=== PATIENT | female | born 1980 | race Hispanic/Latino ===

== ENCOUNTER 2021-09-14 18:00 | Inpatient (IN) | payer OTHER ==
[2021-09-14] MEDS ORDERED: Diphenoxylate HCl/Atropine Tablet PO PRN (23:12)
[2021-09-14] MEDS ORDERED: Misoprostol 200 MCG TAB PR PRN (23:12)
[2021-09-14] MEDS ORDERED: Ondansetron PF 4 MG/2 ML Vial IVP PRN (23:12)
[2021-09-14] MEDS ORDERED: Lidocaine 1% (PF) 30 ML VIAL SC PRN (23:12)
[2021-09-14] MEDS ORDERED: Acetaminophen 500 MG TAB PO PRN (23:12)
[2021-09-14] MEDS ORDERED: Butorphanol Tartrate 1 MG/ML VIAL SLOW IVP PRN (23:12)
[2021-09-14] MEDS ORDERED: Promethazine HCl 25 MG/ML VIAL IM PRN (23:12)
[2021-09-14] MEDS ORDERED: hydrALAZINE 20 MG/ML VIAL SLOW IVP PRN (23:12)
[2021-09-14] MEDS ORDERED: Carboprost 250 MCG/ML AMP IM PRN (23:12)
[2021-09-14] MEDS ORDERED: Ibuprofen 800 MG TAB PO PRN (23:12)
[2021-09-14] MEDS ORDERED: HYDROcodone/Acetaminophen 5/325 mg Tablet PO PRN ×2 (23:12)
[2021-09-14 23:50] VITALS: BMI 42.9
[2021-09-14] MEDS ORDERED: Penicillin G Potassium 5 MILL.UNITS in Sodium Chloride 0.9% 100 ML IVPB SCH (23:59)
[2021-09-14] MEDS ORDERED: NS w/ Oxytocin 30 units 500 ML IV SCH ×2 (23:59)
[2021-09-15 00:46] LABS: Hemoglobin 10.8 g/dL (12.0-15.5); Mean Corpuscular HGB CONC 32.3 g/dL (32.0-36.0); Mean Corpuscular Hemoglobin 26.5 pg (27.0-33.0); Mean Corpuscular Volume 81.9 fl (81.6-98.3); Mean Platelet Volume 10.2 fl (7.4-10.4); Platelet Count 249 10x3/uL (150-450); RBC Distribution Width 15.2 % (11.5-14.5); Red Blood Cell (RBC) Count 4.08 10x6/uL (3.90-5.03)
[2021-09-15 00:49] LABS: Hep B Surf Ag Non-Reactive S/CO (NonReactive); Syphilis Antibody Nonreactive (Nonreactive); Syphilis Antibody Index 0.06 S/CO (<1.00 Non-Reactive)
[2021-09-15] MEDS: Misoprostol 100 MCG TAB VAG SCH ×6 (00:53→16:35)
[2021-09-15 01:54] LABS: HBSAg Index 0.14 S/CO (0-0.99)
[2021-09-15] MEDS: Penicillin G 2.5 MILL.units 2.5 MILL.UNITS in Premix Bag 1 BAG IVPB SCH ×3 (04:33→13:20)
[2021-09-15] MEDS ORDERED: Bupivacaine 0.25% HCL 30 ML VIAL ONE (08:00)
[2021-09-15] MEDS ORDERED: Fentanyl 2 mcg/Bup 0.1% Cadd 100 ML ONE (08:19)
[2021-09-15] MEDS ORDERED: Naloxone HCl 0.4 mg/ml Vial IVP PRN ×2 (09:03)
[2021-09-15] MEDS ORDERED: Ondansetron PF 4 MG/2 ML Vial IVP PRN ×2 (09:03→19:52)
[2021-09-15] MEDS ORDERED: ePHEDrine Sulfate 50 MG/10 ML VIAL SLOW IVP PRN (09:03)
[2021-09-15] MEDS ORDERED: Hydrocerin (Eucerin) Cream 120 gm Jar TOP PRN (09:03)
[2021-09-15] MEDS ORDERED: diphenhydrAMINE 50 MG/ML VIAL IVP PRN (09:03)
[2021-09-15] MEDS ORDERED: Lactated Ringer's 500 ML IV PRN (09:03)
[2021-09-15] MEDS ORDERED: Promethazine HCl 25 MG/ML VIAL IM PRN (09:03)
[2021-09-15] MEDS ORDERED: Acetaminophen 325 MG TAB PO PRN (09:03)
[2021-09-15] MEDS: Lactated Ringer's 1,000 ML IV SCH ×2 (09:11→09:12)
[2021-09-15] MEDS ORDERED: Communication Order-Pharmacy FS SCH (09:15)
[2021-09-15] MEDS: Fentanyl 2 mcg/Bupivacaine 0.1% Cassette 100 ML EPIDURAL SCH ×2 (09:24→16:09)
[2021-09-15] MEDS ORDERED: Benzocaine-Menthol 82.5 ML CAN TOP PRN (19:52)
[2021-09-15] MEDS ORDERED: NS w/ Oxytocin 30 units 500 ML IV SCH (19:52)
[2021-09-15] MEDS ORDERED: Milk Of Magnesia 30 ML UDCUP PO PRN (19:52)
[2021-09-15] MEDS ORDERED: HYDROcodone/Acetaminophen 5/325 mg Tablet PO PRN ×2 (19:52)
[2021-09-15] MEDS ORDERED: hydrALAZINE 20 MG/ML VIAL SLOW IVP PRN (19:52)
[2021-09-15] MEDS ORDERED: Lanolin Ointment 7 GM TUBE TOP PRN (19:52)
[2021-09-15] MEDS ORDERED: Misoprostol 200 MCG TAB VAG PRN (19:52)
[2021-09-15] MEDS ORDERED: Bisacodyl 10 MG SUPP PR PRN (19:52)
[2021-09-15] MEDS: Ibuprofen 800 MG TAB PO SCH (21:45)
[2021-09-15] MEDS: Docusate 100 MG CAP PO SCH (21:45)
[2021-09-16] MEDS: Ibuprofen 800 MG TAB PO SCH ×2 (05:16→13:27)
[2021-09-16] MEDS: Ferrous Sulfate 325 MG TAB PO SCH ×2 (08:13→14:19)
[2021-09-16] MEDS: Hydrocortisone 2.5% Cream 30 GM TUBE TOP SCH ×2 (08:15→08:31)
[2021-09-16] MEDS: Docusate 100 MG CAP PO SCH (08:15)
[2021-09-16] MEDS: Penicillin G 2.5 MILL.units 2.5 MILL.UNITS in Premix Bag 1 BAG IVPB SCH (19:18)
[2021-09-16] MEDS: Lactated Ringer's 1,000 ML IV SCH (19:18)
[2021-09-16] MEDS: Misoprostol 100 MCG TAB VAG SCH (19:18)
[2021-09-16 20:18] VITALS: BP 116/55; TEMP 98.4
== END 2021-09-16 21:50 | disposition home or self-care (01) | DRG 807 ==
LOC: CSHLD 22:56 → CSHPP 09-15 20:15
PROVIDERS: ADMIT Student in an Organized Health Care Education/Training Program; ATTEND Student in an Organized Health Care Education/Training Program
PROC: 10E0XZZ Delivery of Products of Conception, External Approach (ICD-10-PCS; principal; 2021-09-15)
DX: O10.92 Unspecified pre-existing hypertension complicating childbirth (principal); Z37.0 Single live birth; Z3A.38 38 weeks gestation of pregnancy; Z79.899 Other long term (current) drug therapy; O99.824 Streptococcus B carrier state complicating childbirth; E66.01 Morbid (severe) obesity due to excess calories; O99.214 Obesity complicating childbirth; Z79.82 Long term (current) use of aspirin; O42.02 Full-term premature rupture of membranes, onset of labor within 24 hours of rupture; O69.81X0 Labor and delivery complicated by cord around neck, without compression, not applicable or unspecified
CPT/HCPCS: 36415; 51702; 85027; 86780; 86850; 86900; 86901; 87340; J2540; J2590; J3490; J7120; S0020